=== PATIENT | female | born 1960 | race Caucasian/White ===

== ENCOUNTER 2019-06-28 05:30 | Day surgery (SDC) | payer OTHER ==
[2019-06-26 14:36] LABS: BASOPHILS 0.4 % (0-2); EOSINOPHILS 2.8 % (0-7); HEMATOCRIT 36.2 % (36.0-48.0); HEMOGLOBIN 12.7 g/dL (12-16); IMMATURE GRANULOCYTES 0.1 % (0-5); LYMPHOCYTES 34.9 % (15-50); MCH 31.7 pg (26.0-34.0); MCHC 35.1 g/dL (31.0-37.0); MCV 90.3 fL (80.0-100.0); MEAN PLATELET VOLUME 10.8 fL (7.4-10.4); MONOCYTES 6.4 % (2-11); NEUTROPHILS 55.4 % (40-80); PLATELET COUNT 157 10x3/uL (130-400); RBC 4.01 10x6/uL (4.00-5.40); RDW 13.1 % (11.5-14.5); WBC 7.1 10x3/uL (4.8-10.8)
[2019-06-26 14:48] LABS: CALCIUM 8.7 mg/dL (8.5-10.1); CARBON DIOXIDE 25.5 mmol/L (21.0-32.0); CREATININE - SERUM 0.9 mg/dL (0.6-1.3); POTASSIUM - SERUM 3.5 mmol/L (3.5-5.1)
[~2019-06-28] VITALS: Ht 162.6 cm; Wt 85.3 kg
[~2019-06-28 05:30] MED LIST: LEVOTHYROXINE100 MCG PO; LISINOPRIL-HCT1 EAC4 PO
[2019-06-28 06:07] VITALS: BP 131/87; Ht 162.6 cm; Wt 85.3 kg
== END 2019-06-28 09:59 | disposition home or self-care (01) ==
LOC: D.OPS 05:30 → D.PAN 07:30 → D.OPS 09:59
PROVIDERS: ATTEND Orthopaedic Surgery
DX: M67.432 Ganglion, left wrist (principal); M25.532 Pain in left wrist

== ENCOUNTER → 2020-08-06 09:06 | Outpatient (CLI) | payer OTHER ==
[2019-06-28 06:07] VITALS: BMI 32.3
== END | disposition home or self-care (01) ==
LOC: D.US 09:06
PROVIDERS: ATTEND Family Medicine
DX: R92.8 Other abnormal and inconclusive findings on diagnostic imaging of breast (principal); S62.607A Fracture of unspecified phalanx of left little finger, initial encounter for closed fracture

== ENCOUNTER 2020-08-07 05:18 | Day surgery (SDC) | payer OTHER ==
[~2020-08-07] VITALS: Ht 162.6 cm; Wt 86.2 kg
[2020-08-07 05:57] LABS: HEMATOCRIT 41.5 % (36.0-48.0); HEMOGLOBIN 14.1 g/dL (12-16); MCH 31.7 pg (26.0-34.0); MCV 93.3 fL (80.0-100.0); MEAN PLATELET VOLUME 11.2 fL (7.4-10.4); RBC 4.45 10x6/uL (4.00-5.40); WBC 5.7 10x3/uL (4.8-10.8)
[2020-08-07 06:41] VITALS: Ht 162.6 cm; Wt 86.2 kg
--- NOTE | 2020-08-07 14:26 | OP ---
PATIENT NAME: IHSAN PEREZ MEDICAL RECORD: [id number] :62 LOCATION:[facility] ADMISSION DATE: SURGEON: ISACC YAN MD DATE OF OPERATION: 08/07/2020 PREOPERATIVE DIAGNOSES: 1. Left small finger proximal phalanx fracture. 2. Left fifth metacarpal base fracture. POSTOPERATIVE DIAGNOSES: 1. Left small finger proximal phalanx fracture. 2. Left fifth metacarpal base fracture. PROCEDURE PERFORMED: 1. Closed reduction percutaneous pinning, left small finger, proximal phalanx. 2. Closed management of left fifth metacarpal base fracture. INDICATIONS FOR THE PROCEDURE: Mr. Perez is a 60-year-old female who fell approximately 1 week ago and injured her left hand. She sustained a fracture of the base of the small finger proximal phalanx as well as at the base of the fifth metacarpal. We attempted a closed management, but the small finger fracture remained angulated and displaced. The decision was made to proceed with surgery for operative stabilization. Risks, benefits and alternatives of surgery were discussed with the patient and consent was obtained. DESCRIPTION OF PROCEDURE: The patient was met in the holding area where her identity and confirmation of procedure was performed. Left upper extremity was marked. She was taken to the operating room where she was placed supine on the operating table and anesthesia was administered. A tourniquet was applied to left arm. The left arm was prepped and draped in a sterile fashion. The patient received preoperative antibiotics and timeout was performed before initiating the case. On initiation of the case, the arm was exsanguinated and tourniquet was raised. Total tourniquet time was approximately 10 minutes. Closed reduction of the small finger proximal phalanx was performed. Two 0.35 K-wires were then inserted at the base of the fracture and into the shaft. We began ulnarly, placed a K-wire and advanced it just across the fracture. We then placed our radial K-wire, advanced it across the fracture and to the head of the proximal phalanx. This provided good realignment of the bone. We then continued on advancing the ulnar K-wire into the head of the proximal phalanx. This reestablished alignment and rotation of the finger was noted to be in a good cascade. The pins were then bent and cut and final images were obtained. We then imaged the fifth metacarpal base fracture. A dorsal force was applied in the lateral position, did not show any instability. Therefore, this will just be managed, closed without any fixation. Sterile dressing was placed. The patient was placed into an ulnar gutter splint. This completed our procedure. She was turned back over to anesthesia where she was awakened, extubated, and taken to recovery room in stable condition. POSTOPERATIVE PLAN: The patient will return home with her family today. She needs to remain in the splint at all times. We will plan to see her back in clinic in 2 weeks. ANESTHESIA: General LMA. OPERATIVE REPORT [id number] IHSAN PEREZ COMPLICATIONS: None. ESTIMATED BLOOD LOSS: 5 mL. TRANSINT:[id number] Voice Confirmation ID: [id number] DOCUMENT ID: [id number] ISACC YAN MD at 1426 CC: [id number] DICTATION DATE: 08/07/20 0954 DIRECTOR OF REHABILITATION: 08/07/20 1223 [id number] [place] [address]
--- NOTE | 2020-08-07 16:35 | NUR ---
1126 IV DC'D. CATHETER TIP INTACT. NO BLEEDING AT SITE. COBAN DRESSING APPLIED. PT'S PAIN LEVEL IS TRENDING DOWN AFTER RECEIVING NORCO AT 1055. PT STATES PAIN LEVEL IS A 4 OUT OF 10.
== END 2020-08-07 11:41 | disposition home or self-care (01) ==
LOC: D.OPS 05:18
PROVIDERS: Anesthesiology; ATTEND Orthopaedic Surgery
DX: S62.617A Displaced fracture of proximal phalanx of left little finger, initial encounter for closed fracture (principal); S62.317A Displaced fracture of base of fifth metacarpal bone, left hand, initial encounter for closed fracture; X58.XXXA Exposure to other specified factors, initial encounter; M79.642 Pain in left hand; M25.562 Pain in left knee